=== PATIENT | male | born 1985 | race Caucasian/White ===

== ENCOUNTER 2025-08-22 12:13 | Emergency (ER) | payer SELFPAY ==
[2025-08-22] MEDS ORDERED: Cephalexin 500 MG CAP ONE (12:52)
[2025-08-22] MEDS ORDERED: Bacitracin 1 PK ONE (12:52)
== END 2025-08-22 13:02 | disposition home or self-care (01) ==
LOC: NAV ERS 12:13
DX: L03.012 Cellulitis of left finger (principal); F17.200 Nicotine dependence, unspecified, uncomplicated
CPT/HCPCS: 90471; 90715